=== PATIENT | female | born 1965 | race Two or more races ===

== ENCOUNTER 2024-06-15 18:11 | Emergency (ER) | payer MEDICAID, SELFPAY ==
[2024-06-15 18:21] VITALS: BP 133/71; PULSE 73; RESP 17; TEMP 36.7; O2SAT 96; BMI 24.3
--- NOTE | 2024-06-15 18:42 | XR_ITS ---
Examination: PA chest single view Technique: Upright PA chest single view Exam date and time: June 15, 2024 1915 hrs. Indications: Coughing today. Findings: Normal heart size. Lungs are clear. The osseous structures are intact Impression: No active disease
--- NOTE | 2024-06-15 18:42 | EKG_ITS ---
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
--- NOTE | 2024-06-15 18:43 | EDRME_ITS ---
Rapid Medical Screening Exam [facility] Arrival date/time: 06/15/24 18:11 59F with history of DM and HLD presents to ED with 1 week of worsening HAMPTON and R blurry/reduced vision. Chief Complaint: Headache Vital signs: Vital Signs Temperature 98.0 F 06/15/24 18:21 Pulse Rate 73 06/15/24 18:21 Respiratory Rate 17 06/15/24 18:21 Blood Pressure 133/71 H 06/15/24 18:21 Pulse Oximetry (%) 96 06/15/24 18:21 Oxygen Delivery Method Room Air 06/15/24 18:21
--- NOTE | 2024-06-15 18:43 | XR_ITS ---
Examination: CT brain head without contrast. 2-D sagittal coronal reconstructions Date and time of exam:June 15, 2024 1928 hrs. Indications: Headaches beginning one week ago CTDI: vol (mGy):47.5 DLP: (mGycm):918 Technique: Multiple CT axial sections of the brain have been obtained, 5 mm slice thickness. Contrast has not been administered. 2-D sagittal, coronal reconstructions have been obtained Low dose protocols were performed. One or more of the following dose reduction techniques were used; automated exposure control, adjustment of the mA and/or KV according to patient size, use of iterative reconstruction technique. Findings: No significant ventricular enlargement. Intra-axial or extra-axial hemorrhage density is not seen. No mass effect or midline shift Basal cisterns are not remarkable. Fourth ventricle is midline. Cranial vault intact. Impression: Negative for acute hemorrhage, mass effect or midline shift Advise clinical correlation follow-up accordingly
[2024-06-15 19:12] LABS: Basophils % (Auto) 0 % (0-2.5); Eosinophils # (Auto) 0.1 Thou/mm3 (0.0-0.5); Eosinophils % (Auto) 1 % (0-10); Hematocrit 40.9 % (36.0-46.0); Immature Granulocytes % (Auto) 0 % (0-0); Immature Granulocytes Auto 0.02 Thou/mm3 (0.00-0.00); Lymphocytes # (Auto) 2.9 Thou/mm3 (1.0-4.8); Lymphocytes % (Auto) 38 % (10-50); Mean Corpuscular HGB Conc 34.2 g/dl (31.0-37.0); Mean Corpuscular Hemoglobin 29.4 pg (25.0-35.0); Mean Corpuscular Volume 86 fL (80-100); Monocytes # (Auto) 0.5 Thou/mm3 (0.0-0.8); Monocytes % (Auto) 6 % (0-12); Neutrophils # (Auto) 4.1 Thou/mm3 (1.8-7.7); Neutrophils % (Auto) 54 % (37-80); Nucleated Red Blood Cell % 0 /100 WBC (0); Platelet Count 290 Thou/mm3 (140-440); RDW Standard Deviation 39.1 fL (36.4-46.3); Red Blood Count 4.76 Miln/mm3 (4.00-5.20); White Blood Count 7.6 Thou/mm3 (3.6-11.0)
[2024-06-15 19:28] LABS: B-Type Natriuretic Peptide 43 pg/mL (0-100)
[2024-06-15 19:30] LABS: Alanine Aminotransferase 16 U/L (10-49); Albumin, Serum 5.1 gm/dL (3.5-5.0); Albumin/Globulin Ratio 1.8 (1.2-2.2); Alkaline Phosphatase 89 U/L (46-116); Anion Gap 7 (7-16); Aspartate Amino Transferase 19 U/L (0-34); BUN/Creatinine Ratio 18 Ratio (12-20); Bilirubin,Total 0.4 mg/dL (0.3-1.2); Blood Urea Nitrogen 20 mg/dL (9-23); Calcium 10.3 mg/dL (8.3-10.6); Calcium (Corrected) 10.3 mg/dL (8.5-10.1); Carbon Dioxide 28.9 mMol/L (20.0-31.0); Chloride 103 mMol/L (98-107); Creatinine (Component) 1.1 mg/dL (0.6-1.3); Estimated Creatinine Clearance 45.3 mL/min (>60); Globulin 2.8 gm/dL (2.3-3.5); Glucose 133 mg/dL (74-106); Magnesium 1.9 mg/dL (1.6-2.6); Osmolality,Calculated 282 (275-295); Potassium 3.8 mMol/L (3.4-5.1); Sodium 139 mMol/L (136-145); Total Protein 7.9 gm/dL (5.7-8.2); Troponin I < 0.002 ng/mL (0.0-0.045); eGFR 58 See Note
[2024-06-15 19:35] LABS: Partial Thromboplastin Time 26.2 Seconds (22.0-36.0)
--- NOTE | 2024-06-15 20:01 | PD.EDADULT ---
ED General RME/HPI General Chief complaint: Headache Stated complaint: HAMPTON X 1 week Time Seen by Provider: 06/15/24 19:43 Arrival date/time: 06/15/24 18:11 CC: Black spot in the right eye, onset approximately 1 week ago the patient noticed that the spot stays in the same symptoms position when she even when she is moving her eyes. No prior history of similar events nothing in the left eye denies any blurred vision. Also states that she has a minor headache. Patient denies nausea vomiting shortness of breath difficulty breathing or double vision. No other complaints at this time. RME / HPI RME / HPI narrative: 06/15/24 18:11 59F with history of DM and HLD presents to ED with 1 week of worsening HAMPTON and R blurry/reduced vision. Related Data Home Medications ?Medication ?Instructions ?Recorded ?Confirmed atorvastatin 20 mg tablet (Lipitor) 20 mg PO HS #0 tabs 01/04/17 01/02/18 metformin 1,000 mg tablet 1,000 mg PO BID #0 tabs 01/04/17 01/02/18 (Glucophage) Allergies Allergy/AdvReac Type Severity Reaction Status Date / Time No Known Allergies Allergy Verified 02/04/23 12:12 Review of Systems Review of Systems Narrative Review of Systems: GEN: No fever, no chills, no weight loss EYES: No discharge, no visual changes, no pain HEENT: No ear pain, no congestion, no sore throat PULM: No shortness of breath, no cough, no congestion CV: No chest pain, no dyspnea on exertion, no palpitations GI: No nausea, no vomiting, no diarrhea, no pain, no constipation : No frequency, no urgency, no dysuria MUSC/SKEL: No joint pain, no back pain SKIN: No rash PSYCH: No hallucinations, no depression HEME/LYMPH: No easy bleeding or bruising tendencies NEURO: No weakness, no headache Past Medical History Past Medical History CARDIAC: Positive Cardiac Disorders and Hypercholesterolemia; Negative Congestive Heart Failure RESPIRATORY: Negative Chronic Obstructive Pulmonary Disease (COPD) or Asthma GENITOURINARY: Positive Kidney Stones; Negative Renal Disease MUSCULOSKELETAL: Positive Musculoskeletal Disorders ENDOCRINE: Positive Diabetes Mellitus Type 2; Negative Diabetes Mellitus Type 1 HEMATOLOGIC: Negative Sickle Cell Disease OTHER HISTORY: Positive Chicken Pox Social History SMOKING STATUS: Never smoker ED Exam Narrative Physical exam: [General: Not in any acute distress Head normocephalic HEENT: Eyes: Pupils are PERRLA EOMs are intact, mouth pink moist membranes all other subsystems of HEENT are within acceptable limits Neck is supple nontender Chest equal chest rise nontender to palpation Respiratory: Clear to auscultation no wheezes crackles or rubs CV: Rate rhythm is regular no murmurs rubs or clicks Abdomen is soft nontender no masses positive bowel sounds all 4 quadrants Back: No CVA tenderness no spinous process tenderness from cervical spine thoracic and lumbar spine Skin: Intact no petechiae rash induration ulceration or crepitus Extremities: Moving all extremity against resistance cap refill less than 2 seconds neurosensory intact Neuro: Awake alert oriented x3 Glascow coma 15 no focal deficits] Course Quality Measures none Orders Category Date Time Status Bedside Influenza A&B Antigen Test NOW Care 06/15/24 18:42 Completed EKG (ED ONLY) *Do not use* NOW Care 06/15/24 18:[address] head/brain wo con Stat Exams 06/15/24 18:43 Completed EKG (ED Only) Stat Exams 06/15/24 18:42 Draft XR chest 1V portable Stat Exams 06/15/24 18:42 Completed B-Type Natriuretic Peptide Stat Lab 06/15/24 19:03 Completed CBC Stat Lab 06/15/24 19:03 Completed Comprehensive Metabolic Panel Stat Lab 06/15/24 19:03 Completed INR [Prothrombin Time with INR] Stat Lab 06/15/24 19:03 Completed Magnesium Stat Lab 06/15/24 19:03 Completed PTT [Partial Thromboplastin Time] Stat Lab 06/15/24 19:03 Completed Troponin I Stat Lab 06/15/24 19:03 Completed Vital Signs Vital signs: Vital Signs Temperature 98.0 F 06/15/24 18:21 Pulse Rate 73 06/15/24 18:21 Respiratory Rate 17 06/15/24 18:21 Blood Pressure 133/71 H 06/15/24 18:21 Pulse Oximetry (%) 96 06/15/24 18:21 Oxygen Delivery Method Room Air 06/15/24 18:21 [facility] Patient data External records reviewed:: [facility] previous records Clinical information provided by:: patient Social determinants that could affect healthcare access:: none Patient has the following chronic illnesses:: Hyperlipidemia How is presenting disease/condition affected by chronic disease/condition?: uneffected by Evaluation data The following diagnostics were reviewed and interpreted by me:: lab results and radiology exam(s) Lab and/or radiology exams considered but not ordered:: CBC shows no acute leukocytosis anemia thrombocytopenia CMP shows no acute electrolyte imbalances other than a mildly elevated glucose, no electrolyte imbalances renal impairment transaminitis or T. bili elevation EKG performed at 1847 shows a rate of 70 AL interval 148 QRS of 9 7 QTc 415 Urine is negative Troponin is negative CT of the head is interpreted by me read by radiology as negative. Interpretation Summary: I believe the patient has a right aqueous hemorrhage, patient will be referred to Dr. Lal tennis desk team member for further evaluation. Medications Medications considered but not ordered:: None Medication administrations:: None Consultations Consultation(s) initiated? (list below): No Diagnosis Differential Diagnosis ED Complaint MDM: CVA TIA intracranial hemorrhage Most likely diagnosis given after review of the tests above:: Aqueous hemorrhage Admission Indicated Admission indicated?: not indicated Explain why admission is indicated or not indicated:: Stable for follow-up outpatient Admission Request Was there a request for admission?: No Disposition Plan Disposition Plan: Discharge Discharge Attestation Discharge Attestation: The patient and all family members were given an opportunity to ask questions and understood the discharge instructions. Discharge instructions specifically effects, indications for sooner follow up or return to the emergency department, and the expected course of current diagnosis. Patient condition: Stable Medical Decision Making Differential Diagnosis Differential Diagnosis: CVA TIA intracranial hemorrhage Lab Data 06/15/24 19:03 06/15/24 19:03 Labs: Lab Results 06/15/24 Range/Units 19:03 WBC 7.6 (3.6-11.0) Thou/mm3 RBC 4.76 (4.00-5.20) Miln/mm3 Hgb 14.0 (12.0-16.0) g/dL Hct 40.9 (36.0-46.0) % MCV 86 (80-100) fL MCH 29.4 (25.0-35.0) pg MCHC 34.2 (31.0-37.0) g/dl RDW Std Deviation 39.1 (36.4-46.3) fL Plt Count 290 (140-440) Thou/mm3 Neut % (Auto) 54 (37-80) % Lymph % (Auto) 38 (10-50) % [place] % (Auto) 6 (0-12) % Eos % (Auto) 1 (0-10) % Baso % (Auto) 0 (0-2.5) % Neut # (Auto) 4.1 (1.8-7.7) Thou/mm3 Lymph # (Auto) 2.9 (1.0-4.8) Thou/mm3 [place] # (Auto) 0.5 (0.0-0.8) Thou/mm3 Eos # (Auto) 0.1 (0.0-0.5) Thou/mm3 Baso # (Auto) 0.0 (0.0-0.2) Thou/mm3 Immature Gran # (Auto) 0.02 H (0.00-0.00) Thou/mm3 Absolute Nucleated RBC 0.00 (0.00-0.00) Thou/mm3 Immature Gran % 0 (0-0) % Nucleated RBC % 0 (0) /100 WBC PT 11.0 (9.0-12.2) Seconds INR 1.0 (0.9-1.3) APTT 26.2 (22.0-36.0) Seconds Sodium 139 (136-145) mMol/L Potassium 3.8 (3.4-5.1) mMol/L Chloride 103 (98-107) mMol/L Carbon Dioxide 28.9 (20.0-31.0) mMol/L Anion Gap 7 (7-16) BUN 20 (9-23) mg/dL Creatinine 1.1 (0.6-1.3) mg/dL Estim Creat Clear Calc 45.3 L (>60) mL/min eGFR 58 L (60 - ) See Note BUN/Creatinine Ratio 18 (12-20) Ratio Glucose 133 H (74-106) mg/dL Calculated Osmolality 282 (275-295) Calcium 10.3 (8.3-10.6) mg/dL Corrected Calcium 10.3 H (8.5-10.1) mg/dL Magnesium 1.9 (1.6-2.6) mg/dL Total Bilirubin 0.4 (0.3-1.2) mg/dL AST 19 (0-34) U/L ALT 16 (10-49) U/L Alkaline Phosphatase 89 (46-116) U/L Troponin I < 0.002 (0.0-0.045) ng/mL B-Natriuretic Peptide 43 (0-100) pg/mL Total Protein 7.9 (5.7-8.2) gm/dL Albumin 5.1 H (3.5-5.0) gm/dL Globulin 2.8 (2.3-3.5) gm/dL Albumin/Globulin Ratio 1.8 (1.2-2.2) Discharge Plan Plan Patient Disposition: HOME (Self Care) Patient condition on transfer: Stable Prescriptions/Referrals Prescriptions/Med Rec: No Action metformin [Glucophage] 1,000 MG tablet 1,000 mg PO BID Qty: 0 atorvastatin [Lipitor] 20 MG tablet 20 mg PO HS Qty: 0 Referrals: Alex Sargent MD [Physician] - In 1 week Edith Wood PA-C [Primary Care Provider] - In 1 week Problem List Clinical Impression: Aqueous misdirection of eye Patient/Caregiver Discharge Instructions Education Materials: ED Blurred Vision Additional Instructions: Follow-up with the tennis desk team member stated above if there is worsening of symptoms return the emergency room immediately for further evaluation. Print Language: Tamazight Stand Alone Forms: Brandy Award Info., Patient Portal Info Letter
[2024-06-15 20:13] VITALS: BP 132/78; PULSE 68; RESP 18; TEMP 36.7; O2SAT 98
== END 2024-06-15 20:16 | disposition home or self-care (01) ==
PROVIDERS: Physician Assistant; Emergency Provider Emergency Medicine; PCP Physician Assistant
DX: H40.831 Aqueous misdirection, right eye (principal); E78.00 Pure hypercholesterolemia, unspecified; R51.9 Headache, unspecified; R05.9 Cough, unspecified; R94.31 Abnormal electrocardiogram [ECG] [EKG]
CPT/HCPCS: 36415; 70450; 71045; 80053; 83735; 83880; 84484; 85025; 85610; 85730; 87400; 93005; 99284

== ENCOUNTER → 2025-02-16 | Outpatient (CLI) | payer MEDICAID, SELFPAY ==
--- NOTE | 2025-02-16 15:45 | XR_ITS ---
Examination: Screening digital mammography, bilateral Computer aided detection 3-D breast Tomosynthesis, bilateral Date and time of exam: February 16, 2025 1554 hours, compared to mammograms dating to August 19, 2014 Indication: Screening Technique: Nonmagnified MLO, CC views of the breasts to been obtained, reconstructed from 3-D Tomosynthesis images. R2 computer aided detection program utilized for evaluation of suspicious masses and/or abnormal calcifications. 3-D Tomosynthesis images obtained. Findings: The breasts are heterogeneously dense, which may obscure small masses Benign calcifications. No interval suspicious masses Impression: BI-RADS category II: Benign Findings. Recommend 1 year follow-up mammogram.
== END | disposition home or self-care (01) ==
LOC: CDIM 15:42
PROVIDERS: Referring Provider Physician Assistant; Visit Provider Physician Assistant
DX: Z12.31 Encounter for screening mammogram for malignant neoplasm of breast (principal); R92.323 Mammographic fibroglandular density, bilateral breasts; R92.1 Mammographic calcification found on diagnostic imaging of breast
CPT/HCPCS: 77063; 77067